=== PATIENT | male | born 1950 | race Caucasian/White ===

== ENCOUNTER 2021-09-17 13:56 | Emergency (ER) | payer OTHER ==
[~2021-09-17] VITALS: Ht 167.6 cm; Wt 100.2 kg
[2021-09-17 14:20] VITALS: BP 147/64
--- NOTE | 2021-09-17 14:55 | NUR ---
DR. CHI AT PT BEDSIDE
--- NOTE | 2021-09-17 15:00 | NUR ---
URINE WALKED TO LAB
--- NOTE | 2021-09-17 15:02 | NUR ---
71 Y/O MALE BIB FAMILY C/O BILATERAL LEG EDEMA X1DAY. DENIES SOB, DENIES PAIN, DENIES FEVER/CHILLS. DENIES N/V/D. PMH:DM, HTN, HLD NKA
--- NOTE | 2021-09-17 15:46 | NUR ---
XR AT PT BEDSIDE
--- NOTE | 2021-09-17 16:04 | NUR ---
BLOOD WORK COLLECTED AND HANDED TO DISPLAY DECORATOR
[2021-09-17 16:15] LABS: BASOPHILS # (AUTO) 0.1 K/uL (0.00-0.22); BASOPHILS % (AUTO) 0.5 % (0.0-2.0); EOSINOPHILS # (AUTO) 0.4 K/uL (0-0.4); EOSINOPHILS % (AUTO) 4.1 % (0.0-4.0); HEMATOCRIT 40.2 % (36-52); HEMOGLOBIN 13.7 g/dL (12.0-18.0); LYMPHOCYTES # (AUTO) 1.1 K/uL (2.0-11.5); LYMPHOCYTES % (AUTO) 11.4 % (20.5-51.1); MEAN CORPUSCULAR HEMOGLOBIN 29 pg (27-31); MEAN CORPUSCULAR HGB CONC 34 g/dL (33-37); MEAN CORPUSCULAR VOLUME 85.1 fL (80-94); MONOCYTES # (AUTO) 0.9 K/uL (0.8-1.0); MONOCYTES % (AUTO) 9.5 % (1.7-9.3); NEUTROPHILS % (AUTO) 74.5 % (42.2-75.2); PLATELET COUNT (AUTO) 234 K/uL (140-450); RED BLOOD CELL COUNT(AUTO) 4.73 MIL/uL (4.20-6.10); RED CELL DISTRIBUTION WIDTH 13.4 % (11.6-13.7); WHITE BLOOD COUNT (AUTO) 9.3 K/uL (4.8-10.8)
[2021-09-17 16:48] LABS: ALBUMIN 3.3 g/dL (3.4-5.0); ANION GAP 13.6 (8-16); POTASSIUM 3.6 mmol/L (3.5-5.1); TOTAL BILIRUBIN 0.5 mg/dL (0.0-1.0)
[2021-09-17] MEDS ORDERED: FUROSEMIDE 40 MG/4 ML VIAL IVP ONE (17:15)
[2021-09-17 17:52] VITALS: BP 147/64
--- NOTE | 2021-09-17 17:54 | NUR ---
Patient discharged with v/s stable. Written and verbal after care instructions given and explained. Patient alert, oriented and verbalized understanding of instructions. with steady gait. All questions addressed prior to discharge. ID band removed. Patient advised to follow up with PMD. Patient educated on indication of medication including possible reaction and side effects. Opportunity to ask questions provided and answered.
== END 2021-09-17 17:52 | disposition home or self-care (01) ==
LOC: MED 13:56
DX: R60.0 Localized edema (principal); G89.29 Other chronic pain; E11.9 Type 2 diabetes mellitus without complications
CPT/HCPCS: 36415; 71045; 80053; 83880; 84484; 85025; 93005; 96374; 99285; J1940

== ENCOUNTER 2022-10-20 10:45 | Emergency (ER) | payer OTHER ==
[~2022-10-20] VITALS: Ht 157.5 cm; Wt 98.9 kg
[2022-10-20 10:50] VITALS: BP 172/77
--- NOTE | 2022-10-20 11:19 | NUR ---
PT COMPLAIN OF BILAT LEG PAIN X 3DYS. NO DISCHARGE TODAY. STEADY GAIT.
[2022-10-20 11:56] LABS: BASOPHILS % (AUTO) 0.6 % (0.0-2.0); EOSINOPHILS # (AUTO) 0.4 K/uL (0-0.4); EOSINOPHILS % (AUTO) 5.1 % (0.0-4.0); HEMATOCRIT 40.6 % (36-52); HEMOGLOBIN 13.6 g/dL (12.0-18.0); LYMPHOCYTES # (AUTO) 1.6 K/uL (2.0-11.5); LYMPHOCYTES % (AUTO) 22.7 % (20.5-51.1); MEAN CORPUSCULAR HEMOGLOBIN 29 pg (27-31); MEAN CORPUSCULAR HGB CONC 34 g/dL (33-37); MEAN CORPUSCULAR VOLUME 85.8 fL (80-94); MONOCYTES # (AUTO) 0.6 K/uL (0.8-1.0); MONOCYTES % (AUTO) 8.8 % (1.7-9.3); NEUTROPHILS # (AUTO) 4.5 K/uL (1.8-7.7); NEUTROPHILS % (AUTO) 62.8 % (42.2-75.2); PLATELET COUNT (AUTO) 202 K/uL (140-450); RED BLOOD CELL COUNT(AUTO) 4.73 MIL/uL (4.20-6.10); WHITE BLOOD COUNT (AUTO) 7.2 K/uL (4.8-10.8)
--- NOTE | 2022-10-20 12:54 | NUR ---
PT NOT IN ROOM. PT OUT IN LOBBY "NOTHING IS BEING DONE HERE"EXPLAINED TO PT WE ARE WAITING FOR LABS. PT AGREED TO STAY
[2022-10-20 12:59] LABS: ALBUMIN 3.4 g/dL (3.4-5.0); ANION GAP 9.8 (8-16); CARBON DIOXIDE 28.4 mmol/L (21-32); CREATININE 3.4 mg/dL (0.6-1.3); POTASSIUM 4.2 mmol/L (3.5-5.1); TOTAL BILIRUBIN 0.5 mg/dL (0.0-1.0)
[2022-10-20] MEDS ORDERED: FUROSEMIDE 100 MG/10 ML VIAL IVP ONE (13:05)
--- NOTE | 2022-10-20 13:39 | NUR ---
PT OUTSIDE WITH DAUGHTER, SPOKE WITH MD. REFUSES TO BE ADMITTED, AGREES TO IV MEDS
[2022-10-20 15:19] VITALS: BP 177/76
--- NOTE | 2022-10-20 15:23 | NUR ---
Patient discharged with v/s stable. Written and verbal after care instructions given and explained. Patient verbalized understanding. Ambulatory with steady gait. All questions addressed prior to discharge. Advised to follow up with PMD.
== END 2022-10-20 15:19 | disposition home or self-care (01) ==
LOC: MED 10:45
DX: R60.0 Localized edema (principal); N18.9 Chronic kidney disease, unspecified; Z79.899 Other long term (current) drug therapy
CPT/HCPCS: 36415; 80053; 83735; 83880; 84484; 85025; 93970; 96374; 99285; J1940; Q0092

== ENCOUNTER 2023-11-09 13:03 | Emergency (ER) | payer OTHER ==
[~2023-11-09] VITALS: Ht 154.9 cm; Wt 98.0 kg
[2023-11-09 13:06] VITALS: BP_SYST 165; PULSE 67; RESP 18; TEMP 98.3; O2SAT 100
[2023-11-09 13:15] VITALS: O2SAT 100
[2023-11-09] MEDS ORDERED: CRUSHER, PILL MC ONE (13:26)
[2023-11-09] MEDS: oxyCODONE 5 MG TAB PO ONE (13:28)
== END 2023-11-09 14:40 | disposition home or self-care (01) ==
LOC: MED 13:03
DX: S22.41XA Multiple fractures of ribs, right side, initial encounter for closed fracture (principal); W18.30XA Fall on same level, unspecified, initial encounter; Y93.89 Activity, other specified; Y92.89 Other specified places as the place of occurrence of the external cause; Y99.8 Other external cause status
CPT/HCPCS: 71101; 99283